=== PATIENT | male | born 1965 | race Caucasian/White ===

== ENCOUNTER 2017-07-04 14:39 | Emergency (ER) | payer OTHER ==
[2017-07-04 14:49] VITALS: RESP 18
--- NOTE | 2017-07-04 15:29 | ED ---
General Adult HPI - General Chief complaint: Chest Pain Stated complaint: Chest Pain Time Seen by Provider: 07/04/17 15:16 Source: patient, RN notes reviewed Mode of arrival: wheelchair Limitations: no limitations - History of Present Illness Initial comments: Patient 51-year-old male with significant past medical history for COPD, who presents emergency room today with a chief complaint of hemoptysis. He has admit that he woke up this morning with breakfast feeling fine. He states came home took a nap and woke up from his nap he began coughing and coughed up some dark blood. Patient states that he's had this happen to her once in the past. He states he went to the hospital a few years ago and eventually discharged and followed with cardiology and told that over the was fine. Patient does admit that he was having some left side chest wall pain over the last 3 days. He states he is currently not having the pain. He currently denies any complaints at this time. Patient denies any recent fever, chills, shortness of breath, back pain, abdominal pain, nausea or vomiting, numbness or tingling, dysuria or hematuria, constipation or diarrhea, headaches or visual changes, or any other complaints. - Related Data Home Medications Medication Instructions Recorded Confirmed Diazepam [Valium] 10 mg PO QID 07/04/17 07/04/17 Dm/Acetaminophen/Doxylamine [[place] 10 ml PO HS PRN 07/04/17 07/04/17 Nyquil Cold & Flu Liquid] HYDROcodone/APAP 10-325MG [[place] 1 tab PO BID PRN 07/04/17 07/04/17 10-325] Levothyroxine Sodium [Synthroid] 175 mcg PO DAILY 07/04/17 07/04/17 Methylphenidate HCl [Ritalin] 20 mg PO QID 07/04/17 07/04/17 Morphine Sulfate ER [Ms Contin 60 mg PO Q12HR 07/04/17 07/04/17 60Mg] Previous Rx's Medication Instructions Recorded Mupirocin 2% Oint [Bactroban Oint] 1 applic TOPICAL TID #1 gm 07/04/17 Allergies Allergy/AdvReac Type Severity Reaction Status Date / Time Penicillins Allergy Anaphylaxis Verified 07/04/17 15:23 Review of Systems ROS Statement: Those systems with pertinent positive or pertinent negative responses have been documented in the HPI. ROS Other: All systems not noted in ROS Statement are negative. Past Medical History Past Medical History: COPD Additional Past Medical History / Comment(s): emphysema History of Any Multi-Drug Resistant Organisms: None Reported Past Surgical History: Back Surgery, Orthopedic Surgery Past Psychological History: No Psychological Hx Reported Smoking Status: Current every day smoker Past Alcohol Use History: None Reported Past Drug Use History: None Reported General Exam - General Exam Comments Initial Comments: General: The patient is awake and alert, in no distress, and does not appear acutely ill. Eye: Pupils are equal, round and reactive to light, extra-ocular movements are intact. No nystagmus. There is normal conjunctiva bilaterally. No signs of icterus. Ears, nose, mouth and throat: There are moist mucous membranes and no oral lesions. Neck: The neck is supple, there is no tenderness or JVD. Cardiovascular: There is a regular rate and rhythm. No murmur, rub or gallop is appreciated. Respiratory: Lungs are clear to auscultation, respirations are non-labored, breath sounds are equal. No wheezes, stridor, rales, or rhonchi. Gastrointestinal: Soft, non-distended, non-tender abdomen without masses or organomegaly noted. There is no rebound or guarding present. No CVA tenderness. Bowel sounds are unremarkable. Musculoskeletal: Normal ROM, no tenderness. Strength 5/5. Sensation intact. Pulses equal bilaterally 2+. Neurological: A&O x 3. CN II-XII intact, There are no obvious motor or sensory deficits. Coordination appears grossly intact. Speech is normal. Skin: Skin is warm and dry and no rashes or lesions are noted. Psychiatric: Cooperative, appropriate mood & affect, normal judgment. Limitations: no limitations Course Vital Signs 07/04/17 07/04/17 07/04/17 14:44 16:23 16:26 Temperature 97.7 F 97.6 F Pulse Rate 104 H 65 Respiratory 18 18 Rate Blood Pressure 173/93 163/91 O2 Sat by Pulse 97 97 97 Oximetry EKG Findings - EKG Comments: EKG Findings:: EKG performed at 1456: Shows a sinus rhythm with arrhythmia at 77 bpm TX interval 142. QRS 100. QT/QTc is 362/409. There is no acute ST change. Medical Decision Making - Medical Decision Making Case discussed in detail with attending physician Dr. Bang. Patient reexamined at this time shows no signs of distress resting comfortably. Patient states he believes is coming from his sinuses is had increased drainage and discharge with cough over the last few days. His d-dimer was negative his chest x-ray shows COPD changes and no acute abnormalities. Patient's remaining labs are unremarkable. His chest pain has been ongoing over off-and-on over the last 3 days. It was discussed with patient about admission to the hospital for further evaluation and repeat labs. He has declined states he does not want stay in the hospital. He also has a small ulcerated wound to the left mera with some redness locally. Patient will be given a prescription for Bactroban. Patient will be discharged home and advised follow-up the family doctor in the next 1-2 days. He is advised return if any symptoms increase or worsen. - Lab Data Result diagrams: 07/04/17 15:20 07/04/17 15:20 Lab Results 07/04/17 07/04/17 07/04/17 Range/Units 15:20 15:20 15:20 WBC 10.2 (3.8-10.6) k/uL RBC 4.38 (4.30-5.90) m/uL Hgb 14.3 (13.0-17.5) gm/dL Hct 42.1 (39.0-53.0) % MCV 96.2 (80.0-100.0) fL MCH 32.7 (25.0-35.0) pg MCHC 34.0 (31.0-37.0) g/dL RDW 14.6 (11.5-15.5) % Plt Count 200 (150-450) k/uL Neutrophils % 66 % Lymphocytes % 22 % Monocytes % 4 % Eosinophils % 5 % Basophils % 1 % Neutrophils # 6.7 (1.3-7.7) k/uL Lymphocytes # 2.2 (1.0-4.8) k/uL Monocytes # 0.4 (0-1.0) k/uL Eosinophils # 0.5 (0-0.7) k/uL Basophils # 0.1 (0-0.2) k/uL PT (9.0-12.0) sec INR (<1.2) APTT (22.0-30.0) sec D-Dimer (<0.60) mg/L FEU Sodium 142 (137-145) mmol/L Potassium 4.4 (3.5-5.1) mmol/L Chloride 106 (98-107) mmol/L Carbon Dioxide 27 (22-30) mmol/L Anion Gap 9 mmol/L BUN 20 (9-20) mg/dL Creatinine 0.80 (0.66-1.25) mg/dL Est GFR (MDRD) Af Amer >60 (>60 ml/min/1.73 sqM) Est GFR (MDRD) Non-Af >60 (>60 ml/min/1.73 sqM) Glucose 90 (74-99) mg/dL Calcium 10.0 (8.4-10.2) mg/dL Magnesium 2.1 (1.6-2.3) mg/dL Total Bilirubin 0.5 (0.2-1.3) mg/dL AST 30 (17-59) U/L ALT 40 (21-72) U/L Alkaline Phosphatase 93 (38-126) U/L Total Creatine Kinase 217 H (55-170) U/L CK-MB (CK-2) 2.6 H* (0.0-2.4) ng/mL CK-MB (CK-2) Rel Index 1.2 Troponin I <0.012 (0.000-0.034) ng/mL Total Protein 7.7 (6.3-8.2) g/dL Albumin 4.5 (3.5-5.0) g/dL 07/04/17 Range/Units 15:20 WBC (3.8-10.6) k/uL RBC (4.30-5.90) m/uL Hgb (13.0-17.5) gm/dL Hct (39.0-53.0) % MCV (80.0-100.0) fL MCH (25.0-35.0) pg MCHC (31.0-37.0) g/dL RDW (11.5-15.5) % Plt Count (150-450) k/uL Neutrophils % % Lymphocytes % % Monocytes % % Eosinophils % % Basophils % % Neutrophils # (1.3-7.7) k/uL Lymphocytes # (1.0-4.8) k/uL Monocytes # (0-1.0) k/uL Eosinophils # (0-0.7) k/uL Basophils # (0-0.2) k/uL PT 10.6 (9.0-12.0) sec INR 1.1 (<1.2) APTT 25.9 (22.0-30.0) sec D-Dimer 0.40 (<0.60) mg/L FEU Sodium (137-145) mmol/L Potassium (3.5-5.1) mmol/L Chloride (98-107) mmol/L Carbon Dioxide (22-30) mmol/L Anion Gap mmol/L BUN (9-20) mg/dL Creatinine (0.66-1.25) mg/dL Est GFR (MDRD) Af Amer (>60 ml/min/1.73 sqM) Est GFR (MDRD) Non-Af (>60 ml/min/1.73 sqM) Glucose (74-99) mg/dL Calcium (8.4-10.2) mg/dL Magnesium (1.6-2.3) mg/dL Total Bilirubin (0.2-1.3) mg/dL AST (17-59) U/L ALT (21-72) U/L Alkaline Phosphatase (38-126) U/L Total Creatine Kinase (55-170) U/L CK-MB (CK-2) (0.0-2.4) ng/mL CK-MB (CK-2) Rel Index Troponin I (0.000-0.034) ng/mL Total Protein (6.3-8.2) g/dL Albumin (3.5-5.0) g/dL Disposition Clinical Impression: Hemoptysis Disposition: HOME SELF-CARE Condition: Good Instructions: Hemoptysis (ED) Additional Instructions: Please follow the family doctor next 1-2 days. Please return here to the emergency room symptoms increase or worsen or for any concerns. Prescriptions: Mupirocin 2% Oint [Bactroban Oint] 1 applic TOPICAL TID #1 gm Referrals: Mo Cortez MD [Primary Care Provider] - 1-2 days Time of Disposition: 16:54
[2017-07-04 15:53] LABS: Basophils # (A) 0.1 k/uL (0-0.2); Basophils % (A) 1 %; CH 33.5; Eosinophils # (A) 0.5 k/uL (0-0.7); Eosinophils % (A) 5 %; HCT 42.1 % (39.0-53.0); HDW 2.77; HGB 14.3 gm/dL (13.0-17.5); Luc # (Auto) 0.16; Luc % (Auto) 2; Lymphocytes # (A) 2.2 k/uL (1.0-4.8); Lymphocytes % (A) 22 %; MCH 32.7 pg (25.0-35.0); MCV 96.2 fL (80.0-100.0); Mean Platelet Volume 8.3; Monocytes # (A) 0.4 k/uL (0-1.0); Monocytes % (A) 4 %; Neutrophils # (A) 6.7 k/uL (1.3-7.7); Neutrophils % (A) 66 %; RBC 4.38 m/uL (4.30-5.90); RDW 14.6 % (11.5-15.5); WBC 10.2 k/uL (3.8-10.6); WBC (Perox) 10.17
[2017-07-04 16:08] LABS: ALT 40 U/L (21-72); AST 30 U/L (17-59); Alkaline Phosphatase 93 U/L (38-126); Anion Gap 9 mmol/L; Blood Urea Nitrogen 20 mg/dL (9-20); Carbon Dioxide 27 mmol/L (22-30); Chloride 106 mmol/L (98-107); Creatine Kinase 217 U/L (55-170); Glucose 90 mg/dL (74-99); Magnesium 2.1 mg/dL (1.6-2.3); Non-African American GFR(MDRD) >60 (>60 ml/min/1.73 sqM); Potassium 4.4 mmol/L (3.5-5.1); Sodium 142 mmol/L (137-145); Total Bilirubin 0.5 mg/dL (0.2-1.3); Total Protein 7.7 g/dL (6.3-8.2)
[2017-07-04 16:20] LABS: Creatine Kinase MB 2.6 ng/mL (0.0-2.4); Troponin I <0.012 ng/mL (0.000-0.034)
[2017-07-04 16:21] LABS: INR 1.1 (<1.2); Partial Thromboplastin Time 25.9 sec (22.0-30.0); Prothrombin Time 10.6 sec (9.0-12.0)
[2017-07-04 16:28] VITALS: BP 163/91; PULSE 65; TEMP 97.6
--- NOTE | 2017-07-04 16:35 | XR ---
EXAMINATION TYPE: XR chest 2V DATE OF EXAM: 07/04/2017 COMPARISON: NONE INDICATION: Chest pain, hemoptysis TECHNIQUE: Frontal and lateral views of the chest are obtained. FINDINGS: The heart size is normal. The pulmonary vasculature is normal. The lungs are clear. Large emphysematous blebs are present at the lung apices. Subglottic airway kellie ears normal IMPRESSION: 1. COPD with emphysematous blebs and bulla at the apices. 2. No suspicious acute changes
== END 2017-07-04 17:16 | disposition home or self-care (01) ==
LOC: EC 14:39
DX: R04.2 Hemoptysis (principal); R07.89 Other chest pain; L97.229 Non-pressure chronic ulcer of left calf with unspecified severity; I49.8 Other specified cardiac arrhythmias; F17.200 Nicotine dependence, unspecified, uncomplicated; Z88.0 Allergy status to penicillin; Z79.891 Long term (current) use of opiate analgesic; Z79.899 Other long term (current) drug therapy
CPT/HCPCS: 36415; 71020; 80053; 82550; 82553; 83735; 84484; 85025; 85379; 85610; 85730; 93005; 99285

== ENCOUNTER 2017-07-05 03:58 | Inpatient (IN) | payer MEDICARE, OTHER ==
[2017-07-05] MEDS ORDERED: RX INFO: IV CONTRAST WAS GIVEN 1 EACH MISC MISCELLANE PRN (04:16)
--- NOTE | 2017-07-05 04:19 | ED ---
General Adult HPI - General Chief complaint: Upper Respiratory Infection Stated complaint: coughing blood Time Seen by Provider: 07/05/17 04:01 Source: patient, RN notes reviewed, old records reviewed Mode of arrival: ambulatory Limitations: no limitations - History of Present Illness Initial comments: 51-year-old male with history of COPD presents with chief complaint of cough no blood. Patient has had significant cough for the past several days. Patient was evaluated in the emergency department yesterday and offered admission at that time. He was feeling better and declined admission went home and stated he would return with worsening symptoms. Said several episodes today of significant hemoptysis. Chest x-ray was obtained yesterday showed COPD with emphysematous blebs and pull at the apices. There was no focal pneumonia. Patient did report some left-sided chest pain worse with cough. This was nonradiating. Sharp in nature. Currently resolved. Denies any nausea vomiting or diarrhea. No fever or chills - Related Data Home Medications Medication Instructions Recorded Confirmed Diazepam [Valium] 10 mg PO QID 07/04/17 07/05/17 HYDROcodone/APAP 10-325MG [[place] 1 tab PO BID PRN 07/04/17 07/05/17 10-325] Levothyroxine Sodium [Synthroid] 175 mcg PO DAILY 07/04/17 07/05/17 Methylphenidate HCl [Ritalin] 20 mg PO QID 07/04/17 07/05/17 Morphine Sulfate ER [Ms Contin 60 mg PO Q12HR 07/04/17 07/05/17 60Mg] Previous Rx's Medication Instructions Recorded Mupirocin 2% Oint [Bactroban Oint] 1 applic TOPICAL TID #1 gm 07/04/17 Allergies Allergy/AdvReac Type Severity Reaction Status Date / Time Penicillins Allergy Anaphylaxis Verified 07/05/17 04:04 Review of Systems ROS Statement: Those systems with pertinent positive or pertinent negative responses have been documented in the HPI. ROS Other: All systems not noted in ROS Statement are negative. Past Medical History Past Medical History: COPD Additional Past Medical History / Comment(s): emphysema History of Any Multi-Drug Resistant Organisms: None Reported Past Surgical History: Back Surgery, Orthopedic Surgery Past Psychological History: No Psychological Hx Reported Smoking Status: Current every day smoker Past Alcohol Use History: None Reported Past Drug Use History: None Reported General Exam Limitations: no limitations General appearance: alert, in no apparent distress Head exam: Present: atraumatic, normocephalic Eye exam: Present: normal appearance, PERRL ENT exam: Present: normal exam Neck exam: Present: normal inspection, full ROM Respiratory exam: Present: prolonged expiratory. Absent: respiratory distress, wheezes Cardiovascular Exam: Present: normal rhythm, tachycardia GI/Abdominal exam: Present: soft. Absent: distended, tenderness Extremities exam: Present: normal inspection, normal capillary refill. Absent: pedal edema Back exam: Present: normal inspection Neurological exam: Present: alert, oriented X3 Psychiatric exam: Present: normal affect, normal mood Skin exam: Present: warm, dry, intact. Absent: cyanosis, diaphoretic Course Vital Signs 07/05/17 07/05/17 07/05/17 04:02 04:09 04:40 Temperature 98.9 F Pulse Rate 117 H 97 Respiratory 20 18 20 Rate Blood Pressure 160/93 133/89 O2 Sat by Pulse 92 L 97 Oximetry 07/05/17 07/05/17 05:46 06:01 Temperature Pulse Rate 100 88 Respiratory 18 Rate Blood Pressure 149/94 O2 Sat by Pulse 98 Oximetry - Reevaluation(s) Reevaluation #1: 07/05/17 06:08 On reevaluation, patient has had continued hemoptysis. EKG Findings - EKG Comments: EKG Findings:: EKG shows normal sinus rhythm, ventricular rate of 88, NE interval 148, castration 98, QTC 4:30, no ST segment elevation or depression, no signs of right heart strain. Medical Decision Making - Medical Decision Making 51-year-old male presenting with cough and hemoptysis. Patient has a history of COPD and is coughing for several days. Was evaluated emergency department yesterday and declined admission at that time. He presents with worsening cough and hemoptysis today. Patient did state that at one time he had blood from his nose, but denies persistent anterior nosebleed. On examination patient has bronchospastic cough, and prolonged expiration. No robert wheezing on examination. Patient is initially tachycardic and has oxygen saturation of 92% on room air. CT angiography is obtained for evaluation of hemoptysis and concern for pulmonary embolism. CT shows inflammatory process consistent with pneumonia, as well as filling defect in the left anterior pulmonary artery. This finding was discussed with radiology, they do see a filling defect, which may be artifact versus pulmonary embolism, this is not on obstructing and unlikely to be contributing to the patient's symptoms. Patient's vital signs improved without treatment. Laboratory studies reveal stable hemoglobin, otherwise unremarkable. EKG is nonischemic. Chest x-ray from yesterday shows some apical blebbing. CT consistent with right sided pneumonia. Patient is started on IV antibiotics and will be treated for COPD exacerbation. Diagnosis: Hemoptysis secondary to community acquired pneumonia and COPD exacerbation - Lab Data Result diagrams: 07/05/17 04:23 07/05/17 04:23 Lab Results 07/05/17 07/05/17 07/05/17 Range/Units 04:23 04:23 04:23 WBC 9.9 (3.8-10.6) k/uL RBC 4.52 (4.30-5.90) m/uL Hgb 15.0 (13.0-17.5) gm/dL Hct 43.3 (39.0-53.0) % MCV 95.9 (80.0-100.0) fL MCH 33.2 (25.0-35.0) pg MCHC 34.6 (31.0-37.0) g/dL RDW 14.0 (11.5-15.5) % Plt Count 219 (150-450) k/uL Neutrophils % 60 % Lymphocytes % 27 % Monocytes % 4 % Eosinophils % 7 % Basophils % 1 % Neutrophils # 6.0 (1.3-7.7) k/uL Lymphocytes # 2.6 (1.0-4.8) k/uL Monocytes # 0.4 (0-1.0) k/uL Eosinophils # 0.7 (0-0.7) k/uL Basophils # 0.1 (0-0.2) k/uL PT (9.0-12.0) sec INR (<1.2) APTT (22.0-30.0) sec Sodium (137-145) mmol/L Potassium (3.5-5.1) mmol/L Chloride (98-107) mmol/L Carbon Dioxide (22-30) mmol/L Anion Gap mmol/L BUN (9-20) mg/dL Creatinine (0.66-1.25) mg/dL Est GFR (MDRD) Af Amer (>60 ml/min/1.73 sqM) Est GFR (MDRD) Non-Af (>60 ml/min/1.73 sqM) Glucose (74-99) mg/dL Calcium (8.4-10.2) mg/dL Magnesium (1.6-2.3) mg/dL Total Bilirubin (0.2-1.3) mg/dL AST (17-59) U/L ALT (21-72) U/L Alkaline Phosphatase (38-126) U/L Total Creatine Kinase 194 H (55-170) U/L CK-MB (CK-2) 2.4 (0.0-2.4) ng/mL CK-MB (CK-2) Rel Index 1.2 Troponin I <0.012 (0.000-0.034) ng/mL Total Protein (6.3-8.2) g/dL Albumin (3.5-5.0) g/dL Blood Type B Positive Blood Type Recheck CABO Indicated Antibody Screen NEGATIVE Spec Expiration Date 07/08/2017232207/05/17 07/05/17 Range/Units 04:23 04:23 WBC (3.8-10.6) k/uL RBC (4.30-5.90) m/uL Hgb (13.0-17.5) gm/dL Hct (39.0-53.0) % MCV (80.0-100.0) fL MCH (25.0-35.0) pg MCHC (31.0-37.0) g/dL RDW (11.5-15.5) % Plt Count (150-450) k/uL Neutrophils % % Lymphocytes % % Monocytes % % Eosinophils % % Basophils % % Neutrophils # (1.3-7.7) k/uL Lymphocytes # (1.0-4.8) k/uL Monocytes # (0-1.0) k/uL Eosinophils # (0-0.7) k/uL Basophils # (0-0.2) k/uL PT 10.9 (9.0-12.0) sec INR 1.1 (<1.2) APTT 25.3 (22.0-30.0) sec Sodium 143 (137-145) mmol/L Potassium 4.1 (3.5-5.1) mmol/L Chloride 106 (98-107) mmol/L Carbon Dioxide 26 (22-30) mmol/L Anion Gap 11 mmol/L BUN 19 (9-20) mg/dL Creatinine 0.92 (0.66-1.25) mg/dL Est GFR (MDRD) Af Amer >60 (>60 ml/min/1.73 sqM) Est GFR (MDRD) Non-Af >60 (>60 ml/min/1.73 sqM) Glucose 101 H (74-99) mg/dL Calcium 10.1 (8.4-10.2) mg/dL Magnesium 1.9 (1.6-2.3) mg/dL Total Bilirubin 0.7 (0.2-1.3) mg/dL AST 29 (17-59) U/L ALT 42 (21-72) U/L Alkaline Phosphatase 98 (38-126) U/L Total Creatine Kinase (55-170) U/L CK-MB (CK-2) (0.0-2.4) ng/mL CK-MB (CK-2) Rel Index Troponin I (0.000-0.034) ng/mL Total Protein 8.4 H (6.3-8.2) g/dL Albumin 4.8 (3.5-5.0) g/dL Blood Type Blood Type Recheck Antibody Screen Spec Expiration Date Disposition Clinical Impression: COPD exacerbation, Hemoptysis, Pneumonia Disposition: ADMITTED IP TO THIS [facility] Condition: Stable Referrals: Mo Cortez MD [Primary Care Provider] - 1-2 days Decision to Admit Reason: Admit from EC Decision Date: 07/05/17 Decision Time: 06:10
[2017-07-05 04:42] LABS: Basophils # (A) 0.1 k/uL (0-0.2); Basophils % (A) 1 %; CH 32.3; CHCM 33.9; Eosinophils # (A) 0.7 k/uL (0-0.7); Eosinophils % (A) 7 %; HCT 43.3 % (39.0-53.0); HDW 2.74; Luc % (Auto) 2; Lymphocytes # (A) 2.6 k/uL (1.0-4.8); Lymphocytes % (A) 27 %; MCH 33.2 pg (25.0-35.0); MCHC 34.6 g/dL (31.0-37.0); MCV 95.9 fL (80.0-100.0); Mean Platelet Volume 7.6; Monocytes # (A) 0.4 k/uL (0-1.0); Monocytes % (A) 4 %; Neutrophils % (A) 60 %; RBC 4.52 m/uL (4.30-5.90); WBC 9.9 k/uL (3.8-10.6); WBC (Perox) 9.98
[2017-07-05 04:54] LABS: ALT 42 U/L (21-72); AST 29 U/L (17-59); Alkaline Phosphatase 98 U/L (38-126); Anion Gap 11 mmol/L; Blood Urea Nitrogen 19 mg/dL (9-20); Calcium 10.1 mg/dL (8.4-10.2); Carbon Dioxide 26 mmol/L (22-30); Chloride 106 mmol/L (98-107); Glucose 101 mg/dL (74-99); Magnesium 1.9 mg/dL (1.6-2.3); Non-African American GFR(MDRD) >60 (>60 ml/min/1.73 sqM); Potassium 4.1 mmol/L (3.5-5.1); Sodium 143 mmol/L (137-145); Total Bilirubin 0.7 mg/dL (0.2-1.3); Total Protein 8.4 g/dL (6.3-8.2)
[2017-07-05 05:00] LABS: Creatine Kinase 194 U/L (55-170)
[2017-07-05 05:02] LABS: INR 1.1 (<1.2); Partial Thromboplastin Time 25.3 sec (22.0-30.0); Prothrombin Time 10.9 sec (9.0-12.0)
[2017-07-05 05:13] LABS: Creatine Kinase MB 2.4 ng/mL (0.0-2.4); Troponin I <0.012 ng/mL (0.000-0.034)
--- NOTE | 2017-07-05 05:48 | CT ---
EXAM: CT Angiography Chest With Intravenous Contrast CLINICAL HISTORY: Reason: Pain TECHNIQUE: Axial computed tomographic angiography images of the chest with intravenous contrast using pulmonary embolism protocol. CTDI is a 3.0, 28.6, 10.3 mGy and DLP is 504.6 mGy-cm. This CT exam was performed using one or more of the following dose reduction techniques: automated exposure control, adjustment of the mA and/or kV according to patient size, and/or use of iterative reconstruction technique. MIP reconstructed images were created and reviewed. COMPARISON: No relevant prior studies available. FINDINGS: Pulmonary arteries: Questionable small focus of low attenuation in a left anterior pulmonary arterial branch (image [id number]), possibly artifact but difficult to exclude possibility of PE. Aorta: Mild aneurysmal dilatation of the ascending thoracic aorta measuring 4 cm and descending thoracic aorta measuring 3 cm. No evidence of aortic dissection. Lungs: Patchy infiltrates in the right lung. Correlate clinically for inflammatory/infectious process. Right greater than left peribronchial thickening and areas of mucus plugging most prominent in the right lower lobe. Emphysematous changes most prominent at the lung apices. Query scarring in the right greater than left upper lobes. Pleural space: Unremarkable. No significant effusion. No pneumothorax. Heart: Pericardial effusion measuring 1.3 cm in thickness. Mediastinum: Mild esophageal wall thickening. Bones/joints: No acute fracture. Old left rib fracture deformities noted. Soft tissues: Unremarkable. Lymph nodes: Small mediastinal and hilar lymph nodes. Gallbladder and bile ducts: Possible cholelithiasis. Kidneys and ureters: Mild nonspecific perinephric stranding. IMPRESSION: 1. Questionable small focus of low attenuation in a left anterior pulmonary arterial branch, possibly artifact but difficult to exclude possibility of PE. Recommend clinical correlation. 2. Patchy infiltrates in the right lung. Correlate clinically for inflammatory/infectious process. Right greater than left peribronchial thickening and areas of mucus plugging most prominent in the right lower lobe. 3. Mild aneurysmal dilatation of the ascending thoracic aorta measuring 4 cm and descending thoracic aorta measuring 3 cm. No evidence of aortic dissection. 4. Pericardial effusion measuring 1.3 cm in thickness. 5. Mild esophageal wall thickening. Critical Value Communications 07/05/17 05:56 Verify Receipt Verified receipt with DR PEDRO @ 0255 07/05/17 07:01 Call From [facility] DR PEDRO
[2017-07-05] MEDS ORDERED: DEXAMETHASONE SOD PHOSPHATE 10 MG/ML 1 ML VIAL IV STA (05:53)
[2017-07-05] MEDS ORDERED: ALBUTEROL NEBULIZED 2.5 MG/3 ML INHALATION STA (05:53)
[2017-07-05] MEDS ORDERED: IPRATROPIUM 0.5 MG/2.5 ML NEBU INHALATION STA (05:53)
[2017-07-05] MEDS ORDERED: IPRATROPIUM-ALBUTEROL 3 ML NEB INHALATION PRN (06:01)
[2017-07-05] MEDS ORDERED: HYDROcodone/APAP 10-325MG 1 EACH TAB PO PRN (06:06)
[2017-07-05 06:54] VITALS: BMI 25.9
[2017-07-05] MEDS: SODIUM CHLORIDE 0.9% 1,000 ML IV SCH ×3 (08:33→22:54)
[2017-07-05] MEDS: LEVOFLOXACIN 500MG-D5W PMX 500 MG in DEXTROSE/WATER 1 100ML.BAG IVPB SCH (08:33)
[2017-07-05] MEDS: LEVOTHYROXINE 100 MCG TAB PO SCH ×2 (11:43→14:59)
[2017-07-05] MEDS: predniSONE 20 MG TAB PO SCH (11:43)
[2017-07-05] MEDS: LEVOTHYROXINE 75 MCG TAB PO SCH ×2 (11:43→14:59)
[2017-07-05] MEDS: MORPHINE SULFATE ER 60 MG TABLET PO SCH ×2 (11:44→19:54)
--- NOTE | 2017-07-05 13:46 | P.CNPUL ---
History of Present Illness Consult date: 07/05/17 Chief complaint: Hemoptysis History of present illness: A pleasant 51-year-old male patient, came into the emergency department cough and out bloody mucus along with small pieces of blood clots. The blood was bright red and was small amount. However he's been having chronic of which got exacerbated over the past 2-3 days. He initially presented emergency department , but she has to get hospitalized, went home to present back himself to the hospital for the same problem. At that point he was hospitalized. Computed tomography scan of the chest was done in the emergency department and it showed multiple abnormalities. First and foremost there was extensive emphysematous changes and bullous disease in the upper lobes more so on the right. There is a spiculated scarlike opacity in the right upper lobe. There was also patchy nodular infiltration along with areas of tree and bud in the right lower lobe. As for the left lung, it was essentially Emphysematous. There was a 1.3 cm pericardial effusion, mild aneurysmal dilatation of the ascending aorta and a questionable focus of a low-attenuation the left anterior pulmonary artery branch which was thought to be artifact and the possibility of pulmonary embolism was also raised. Upon further questioning, the patient admits to smoke up to 3-4 packs of cigarettes on a daily basis and currently smoking 2 packs of cigarettes a day. He has chronic exertional dyspnea. No fever or chills. His appetite has been down and is been losing weight. 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 In fact his grandmother had tuberculosis and all of his siblings including himself had positive PPD skin test and he has seen Dr. Wolfe around 13-14 years ago and he was told to have no not to have acute or open pulmonary tuberculosis. The patient is not using any inhalers. No 70 lung cancer or malignancy. 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 No previous history of DVT or pulmonary embolism. No family history of DVT or pulmonary embolism. Pain or swelling. Review of Systems Constitutional: Reports weakness, Reports weight loss Eyes: denies blurred vision, denies bulging eye, denies decreased vision Ears: deny: decreased hearing, ear discharge, earache Ears, nose, mouth and throat: Reports as per HPI Cardiovascular: Reports dyspnea on exertion, Reports shortness of breath Respiratory: Reports cough, Reports dyspnea, Reports hemoptysis Gastrointestinal: Denies abdominal pain, Denies diarrhea, Denies nausea, Denies vomiting Musculoskeletal: Denies myalgias Musculoskeletal: absent: ankle pain, ankle stiffness, ankle swelling Integumentary: Denies pruritus, Denies rash Neurological: Denies numbness, Denies weakness Psychiatric: Denies anxiety, Denies depression Endocrine: Denies fatigue, Denies weight change Past Medical History Past Medical History: COPD, Osteoarthritis (OA) Additional Past Medical History / Comment(s): emphysema, positive PPD skin test , goiter with a previous thyroidectomy History of Any Multi-Drug Resistant Organisms: None Reported Past Surgical History: Back Surgery, Orthopedic Surgery Additional Past Surgical History / Comment(s): Thyroidectomy for goiter, eye surgery for retinal detachment, arthroscopic knee surgery, lumbar spine fusion Past Psychological History: No Psychological Hx Reported Smoking Status: Current every day smoker Past Alcohol Use History: None Reported Past Drug Use History: None Reported - Past Family History Father Family Medical History: Unable to Obtain Mother Family Medical History: Cancer, Pneumonia Son(s) Family Medical History: Seizure Disorder Daughter(s) Additional Family Medical History / Comment(s): Chrohns Medications and Allergies Home Medications Medication Instructions Recorded Confirmed Type Diazepam [Valium] 10 mg PO QID 07/04/17 07/05/17 History HYDROcodone/APAP 10-325MG [[place] 1 tab PO BID PRN 07/04/17 07/05/17 History 10-325] Levothyroxine Sodium [Synthroid] 175 mcg PO DAILY 07/04/17 07/05/17 History Methylphenidate HCl [Ritalin] 20 mg PO QID 07/04/17 07/05/17 History Morphine Sulfate ER [Ms Contin 60 mg PO Q12HR 07/04/17 07/05/17 History 60Mg] Dm/Acetaminophen/Doxylamine [Vicks 30 ml PO HS PRN 07/05/17 07/05/17 History Nyquil Cold & Flu Liquid] Allergies Allergy/AdvReac Type Severity Reaction Status Date / Time Penicillins Allergy Anaphylaxis Verified 07/05/17 08:48 Physical Exam Vitals: Vital Signs Temp Pulse Pulse Resp BP BP Pulse Ox 07/05/17 11:41 87 16 156/82 94 L 07/05/17 08:00 97.8 F 83 16 140/101 95 09/04/17 07:49 95 07/05/17 06:39 97.0 F L 105 H 16 135/74 94 L 07/05/17 06:16 85 07/05/17 06:01 88 07/05/17 06:00 97.7 F 86 18 150/95 99 07/05/17 05:46 100 18 149/94 98 07/05/17 04:40 97 20 133/89 97 07/05/17 04:09 18 07/05/17 04:02 98.9 F 117 H 20 160/93 92 L Intake and Output 07/04/17 07/05/17 07/05/17 22:59 06:59 14:59 Intake Total 180 Output Total 0 Balance 180 Intake: Oral 180 Output: Urine 0 Other: Weight 96.9 kg The patient appeared well nourished and normally developed. Vital signs as documented. Head exam is unremarkable. No scleral icterus or corneal arcus noted. Neck is without jugular venous distension, thyromegaly, or carotid bruits. Carotid upstrokes are brisk bilaterally. Lungs are diminished bilaterally along with that there is some few scattered expiratory wheezes throughout lung diggs.. Cardiac exam reveals the PMI to be normally sized and situated. Rhythm is regular. First and second heart sounds normal. No murmurs, rubs or gallops. Abdominal exam reveals normal bowel sounds, no masses, no organomegaly and no aortic enlargement. Extremities are nonedematous and both femoral and pedal pulses are normal. Results - Laboratory Findings CBC and BMP: 07/05/17 04:23 07/05/17 04:23 PT/INR, D-dimer PT 10.9 sec (9.0-12.0) 07/05/17 04:23 INR 1.1 (<1.2) 07/05/17 04:23 Abnormal lab findings: Abnormal Labs 07/05/17 07/05/17 07/05/17 04:23 04:23 04:23 Glucose 101 H Plasma Lactic Acid Foster Total Creatine Kinase 194 H Total Protein 8.4 H TSH 13.000 H 07/05/17 06:04 Glucose Plasma Lactic Acid Foster 0.6 L Total Creatine Kinase Total Protein TSH - Diagnostic Findings CT scan - chest: image reviewed Assessment and Plan Plan: Assessment 1 acute hemoptysis. Rule out underlying taken bronchitis/right lower lobe pneumonia which is likely the most common presentation of acute hemoptysis. Rule out tuberculosis knowing that the patient has a positive TB skin test and the same time CAT scan of the chest shows chronic findings of a right upper lobe spiculated density/scar/inflammatory focus and the patient has some no other pulmonary infiltrate the right lung base with areas of tree and bud which can be present and tuberculosis. Endobronchial tumor is felt to be less likely. Malignancy is felt to be less likely. Pulmonary embolism is felt to be less likely 2 bullous emphysema with upper lobe predominance worse on the right 3 chronic smoker 4 positive TB skin test 5 chronic back pain with previous lumbar spine fusion 6 mild aneurysmal dilatation of the ascending aorta 7 small pericardial effusion measuring 1.3 cm in thickness on computed tomography scan of the chest 9 previous thyroidectomy for goiter Plan Isolate the patient. Sputum for AFB. If unable to collect a adequate sputum sample, bronchoscopy will be needed to evaluate this patient hemoptysis in the same time obtain a bronchioloalveolar lavage from the right lower lobe to rule out any ongoing tuberculous infection. Meanwhile, the patient will be treated for an acute coronary quite bronchitis/pneumonia with Levaquin, he will placed on DuoNeb nebulized treatment [id number], smoking cessation counseling, outpatient medication resume. We'll continue to follow.
--- NOTE | 2017-07-05 16:03 | P.HPIM ---
History of Present Illness H&P Date: 07/05/17 Reason for admission hemoptysis History of presenting illness This is a 51-year-old gentleman with a long history of tobacco use comes in the hospital for the second time with complains of hemoptysis patient was seen in the emergency room a day prior was discharged home with antibiotics. Patient comes back in with increased hemoptysis. Patient apparently has been having these episodes for the last few weeks. Patient has more than 40 years of smoking history Patient also reports a history of PPD positive and apparently has been treated for latent tuberculosis in the past also has exposure to his grandmother who had active tuberculosis in the past Patient underwent a computed tomography scan of the chest which had a questionable left segmental artery defect however there was no additional need for oxygen and patient denies having significant hemoptysis hence patient was not started on anticoagulation Patient also is noted to have apical and upper lobe emphysematous bullae upon my review of the computed tomography scan patient is noted to have a right lower lobe previous scarring. This was discussed as in a masslike appearance by the sheet sorter Patient also has tree-in-bud appearance in multiple areas At this time patient states that he is not very active denies having any significant loss of weight no fevers chills night sweats nausea vomiting abdominal pain urinary urgency or frequency is reported Review of systems 14 point review of systems was done nonpertinent was mentioned above Physical exam Gen. appearance alert oriented 3 does not appear to be in distress neck is supple no JVD Head is atraumatic pupils are round and equal to light neck, in addition Chest barrel-shaped diminished breath sounds no significant abnormal sounds appreciated Heart S1-S2 heard regular rate and rhythm no murmurs appreciated Abdomen soft nontender organomegaly Lower extremities no edema Neuro no focal motor or sensory deficits noted Computed tomography scan was reviewed and discussed above Assessment and plan #1 hemoptysis likely an infectious etiology one needs to consider ruling out tuberculosis with the patient who was previously treated for latent tb. #2 chronic pain syndrome #3 hypothyroidism #4 underlying COPD Plan Patient will be set and negative pressure isolation 3 sputum samples will be obtained including 1 today and 2 early learning teacher samples , no anticoagulation at this time if patient's AFB smear is negative At that time consideration for discharge the patient on oral antibiotics for treatment of an infectious etiology will be considered At some point if these tests are nondiagnostic including a cytology patient may need a bronchoscopy however apparently it is a high risk procedure according to my discussion with the sheet sorter. Past Medical History Past Medical History: COPD, Osteoarthritis (OA) Additional Past Medical History / Comment(s): emphysema, positive PPD skin test , goiter with a previous thyroidectomy History of Any Multi-Drug Resistant Organisms: None Reported Past Surgical History: Back Surgery, Orthopedic Surgery Additional Past Surgical History / Comment(s): Thyroidectomy for goiter, eye surgery for retinal detachment, arthroscopic knee surgery, lumbar spine fusion Past Psychological History: No Psychological Hx Reported Smoking Status: Current every day smoker Past Alcohol Use History: None Reported Past Drug Use History: None Reported - Past Family History Father Family Medical History: Unable to Obtain Mother Family Medical History: Cancer, Pneumonia Son(s) Family Medical History: Seizure Disorder Daughter(s) Additional Family Medical History / Comment(s): Chrohns Medications and Allergies Home Medications Medication Instructions Recorded Confirmed Type Diazepam [Valium] 10 mg PO QID 07/04/17 07/05/17 History HYDROcodone/APAP 10-325MG [[place] 1 tab PO BID PRN 07/04/17 07/05/17 History 10-325] Levothyroxine Sodium [Synthroid] 175 mcg PO DAILY 07/04/17 07/05/17 History Methylphenidate HCl [Ritalin] 20 mg PO QID 07/04/17 07/05/17 History Morphine Sulfate ER [Ms Contin 60 mg PO Q12HR 07/04/17 07/05/17 History 60Mg] Dm/Acetaminophen/Doxylamine [Vicks 30 ml PO HS PRN 07/05/17 07/05/17 History Nyquil Cold & Flu Liquid] Allergies Allergy/AdvReac Type Severity Reaction Status Date / Time Penicillins Allergy Anaphylaxis Verified 07/05/17 08:48 Physical Exam Vitals: Vital Signs Temp Pulse Pulse Resp BP BP Pulse Ox 07/05/17 15:48 79 16 137/89 93 L 07/05/17 11:41 87 16 156/82 94 L 07/05/17 08:00 97.8 F 83 16 140/101 95 07/05/17 07:49 95 07/05/17 06:39 97.0 F L 105 H 16 135/74 94 L 07/05/17 06:16 85 07/05/17 06:01 88 07/05/17 06:00 97.7 F 86 18 150/95 99 07/05/17 05:46 100 18 149/94 98 07/05/17 04:40 97 20 133/89 97 07/05/17 04:09 18 07/05/17 04:02 98.9 F 117 H 20 160/93 92 L Intake and Output 07/05/17 07/05/17 07/05/17 06:59 14:59 22:59 Intake Total 380 900 Output Total 0 Balance 380 900 Intake: IV 900 Levofloxacin 500Mg-D5w 100 Pmx 500 mg In Dextrose/ Water 1 100ml.bag @ 100 mls/hr IVPB Q24H TONY Rx#: [id number] Sodium Chloride 0.9% 1, 800 000 ml @ 100 mls/hr IV . Q10H TONY Rx#:[id number] Oral 380 Output: Urine 0 Other: Weight 96.9 kg Results CBC & Chem 7: 07/05/17 04:23 07/05/17 04:23 Labs: Abnormal Lab Results - Last 24 Hours (Table) 07/05/17 07/05/17 07/05/17 Range/Units 04:23 04:23 04:23 Glucose 101 H (74-99) mg/dL Plasma Lactic Acid Foster (0.7-2.0) mmol/L Total Creatine Kinase 194 H (55-170) U/L Total Protein 8.4 H (6.3-8.2) g/dL TSH 13.000 H (0.465-4.680) mIU/L 07/05/17 Range/Units 06:04 Glucose (74-99) mg/dL Plasma Lactic Acid Foster 0.6 L (0.7-2.0) mmol/L Total Creatine Kinase (55-170) U/L Total Protein (6.3-8.2) g/dL TSH (0.465-4.680) mIU/L Thrombosis Risk Factor Assmnt - Choose All That Apply Each Factor Represents 1 point: Abnormal pulmonary function (COPD), Age 41-60 years Thrombosis Risk Factor Assessment Total Risk Factor Score: 2 Thrombosis Risk Factor Assessment Level: Low Risk
[2017-07-05] MEDS ORDERED: ZOLPIDEM 10 MG TAB PO PRN (22:03)
[2017-07-06] MEDS: LEVOTHYROXINE 75 MCG TAB PO SCH (06:10)
[2017-07-06] MEDS: LEVOFLOXACIN 500MG-D5W PMX 500 MG in DEXTROSE/WATER 1 100ML.BAG IVPB SCH (06:10)
[2017-07-06] MEDS: LEVOTHYROXINE 100 MCG TAB PO SCH (06:10)
[2017-07-06 08:53] VITALS: PULSE 79; RESP 16
[2017-07-06 08:55] VITALS: BP 141/96; TEMP 97.7
[2017-07-06] MEDS: MORPHINE SULFATE ER 60 MG TABLET PO SCH (08:58)
[2017-07-06] MEDS ORDERED: NICOTINE 21MG/24HR PATCH TRANSDERM SCH (09:00)
[2017-07-06] MEDS: predniSONE 20 MG TAB PO SCH (09:47)
--- NOTE | 2017-07-06 10:27 | P.PN ---
Subjective Patient sitting up in bed. Patient in isolation until tuberculosis is ruled out. Patient had consultation with pulmonology as had CT of the chest Objective - Vital Signs Vital signs: Vital Signs Temp 97.7 F 07/06/17 08:00 Pulse 79 07/06/17 08:00 Resp 16 07/06/17 08:00 BP 141/96 07/06/17 08:00 Pulse Ox 96 07/06/17 08:00 Intake & Output 07/05/17 07/06/17 07/06/17 18:59 06:59 18:59 Intake Total 1280 800 220 Output Total 0 Balance 1280 800 220 Weight 96.9 kg Intake: IV 900 800 100 Levofloxacin 500Mg-D5w 100 100 Pmx 500 mg In Dextrose/ Water 1 100ml.bag @ 100 mls/hr IVPB Q24H [facility]ONY Rx#: [id number] Sodium Chloride 0.9% 1, 800 800 000 ml @ 100 mls/hr IV . Q10H TONY Rx#:[id number] Oral 380 120 Output: Urine 0 Other: Voiding Method Toilet # Bowel Movements 1 - Constitutional General appearance: Present: mild distress - EENT Eyes: Present: PERRLA Ears: bilateral: normal - Neck Neck: Present: normal ROM - Respiratory Respiratory: bilateral: diminished - Cardiovascular Rhythm: regular - Gastrointestinal General gastrointestinal: Present: soft - Integumentary Integumentary: Present: normal - Neurologic Neurologic: Present: CNII-XII intact - Musculoskeletal Musculoskeletal: Present: gait normal - Psychiatric Psychiatric: Present: A&O x's 3, appropriate affect, intact judgment & insight - Labs CBC & Chem 7: 07/05/17 04:23 07/05/17 04:23 Labs: Abnormal Lab Results - Last 24 Hours (Table) 07/05/17 Range/Units 04:23 TSH 13.000 H (0.465-4.680) mIU/L Microbiology - Last 24 Hours (Table) 07/05/17 06:04 Blood Culture - Preliminary Blood No Growth after 24 hours 07/05/17 15:04 Gram Stain - Final Sputum Sputum Culture - Preliminary - Imaging and Cardiology CT scan - chest: report reviewed Assessment and Plan Plan: Assessment Hemoptysis Likely infectious etiology considering tuberculosis has had positive TB tests in the past Chronic pain syndrome lumbar spine fusion Hypothyroidism Underlying COPD bullous emphysema positive smoker Plan Patient continues in isolation Awaiting results from sputum samples Continue consultation with pulmonology considering bronchoscopy Patient on Levaquin
--- NOTE | 2017-07-06 11:47 | P.DS ---
Providers Date of admission: 07/05/17 06:04 Expected date of discharge: 07/06/17 Attending physician: Mo Cortez Consults: 07/05/17 06:01 Consult Physician Routine Consulting Provider: Jose Luis Wolf Consult Reason/Comments: Community-acquired pneumonia, hemoptysis Do you want consulting provider notified?: Yes, Notify in am Primary care physician: Mo Cortez Hospital Course: 51-year-old male was admitted through the emergency room with complaints of hemoptysis. Patient has a history of positive PPD from exposure grandmother that was 40 years ago. Patient does have a smoking history. Patient was evaluated by pulmonology was placed on Levaquin. Patient was in isolation until tuberculosis rolled out. 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 medical director Assessment hemoptysis likely infectious etiology ruling out tuberculosis chronic pain syndrome all lumbar spinal fusion hypothyroidism underlying COPD with bolus emphysema smoking history Plan follow up with family physician patient is signed out AMA Patient Condition at Discharge: Stable Plan - Discharge Summary New Discharge Prescriptions: No Action Morphine Sulfate ER [Ms Contin 60Mg] 60 mg PO Q12HR Methylphenidate HCl [Ritalin] 20 mg PO QID Levothyroxine Sodium [Synthroid] 175 mcg PO DAILY HYDROcodone/APAP 10-325MG [[place] 10-325] 1 tab PO BID PRN PRN Reason: Pain Diazepam [Valium] 10 mg PO QID Dm/Acetaminophen/Doxylamine [Vicks Nyquil Cold & Flu Liquid] 30 ml PO HS PRN PRN Reason: Flu Symptoms Discharge Medication List Diazepam [Valium] 10 mg PO QID 07/04/17 [History] HYDROcodone/APAP 10-325MG [[place] 10-325] 1 tab PO BID PRN 07/04/17 [History] Levothyroxine Sodium [Synthroid] 175 mcg PO DAILY 07/04/17 [History] Methylphenidate HCl [Ritalin] 20 mg PO QID 07/04/17 [History] Morphine Sulfate ER [Ms Contin 60Mg] 60 mg PO Q12HR 07/04/17 [History] Dm/Acetaminophen/Doxylamine [Vicks Nyquil Cold & Flu Liquid] 30 ml PO HS PRN 02/15 [History] Follow up Appointment(s)/Referral(s): Mo Cortez MD [Primary Care Provider] - 1-2 days Discharge Disposition: Left Against Medical Advice
== END 2017-07-06 11:33 | disposition left against medical advice (07) | DRG 178 ==
LOC: EC 03:58 → 6SEL 06:04
PROVIDERS: ADMIT Family Medicine; ATTEND Family Medicine
DX: A15.9 Respiratory tuberculosis unspecified (principal); I31.3 Pericardial effusion (noninflammatory); I71.2 Thoracic aortic aneurysm, without rupture; J44.9 Chronic obstructive pulmonary disease, unspecified; E89.0 Postprocedural hypothyroidism; G89.4 Chronic pain syndrome; Z98.1 Arthrodesis status; F17.200 Nicotine dependence, unspecified, uncomplicated; Z79.899 Other long term (current) drug therapy; Z82.0 Family history of epilepsy and other diseases of the nervous system; Z88.0 Allergy status to penicillin
CPT/HCPCS: 36415; 71275; 80053; 82550; 82553; 83605; 83735; 84443; 84484; 85025; 85610; 85730; 86850; 86900; 86901; 87040; 87070; 87205; 93005; 94640; 94760; 96374; 99285